=== PATIENT | female | born 1990 | race Caucasian/White ===

== ENCOUNTER 2020-03-05 09:56 | Emergency (ER) | payer OTHER ==
[~2020-03-05] VITALS: Ht 165.1 cm; Wt 81.2 kg
[2020-03-05] MEDS ORDERED: PREDNISONE 20 M20 M1 PO (11:43)
[2020-03-05] MEDS ORDERED: ZPAK PO (11:43)
[2020-03-05 12:11] VITALS: BP 139/96
== END 2020-03-05 12:12 | disposition home or self-care (01) ==
LOC: M.ERS 09:56
DX: U07.1 COVID-19 (principal); E11.9 Type 2 diabetes mellitus without complications; Z88.0 Allergy status to penicillin